=== PATIENT | male | born 1955 | race Caucasian/White ===

== ENCOUNTER → 2020-05-22 | Day surgery (SDC) | payer OTHER ==
[~2020-05-22] MED LIST: ASPIRIN81 MG; ATORVASTATIN CA20 MG PO; ELIQUIS5 M1; FENTANYL CITRATE/PF 100MCG/2 ML INJ ONE; LIDOCAINE HCL 2% LOCAL INJ 5 ML SDV VIAL INJ ONE; METFORMIN HCL500 MG PO; METOPROLOL SUCC50 MG PO; MIDAZOLAM HCL 2 MG/2 ML VIAL ONE; MULTI-VITAMIN1 EACH; PRILOSEC OTC20 MG; PROPOFOL IV EMULSION 10 MG/ML 20 ML VIAL ONE; RYBELSUS3 MG
[2020-05-22 12:15] VITALS: BP 110/79
--- NOTE | 2020-05-22 12:39 | Operative Report ---
DATE OF PROCEDURE: 05/22/2020 SURGEON: Alec Herman MD PROCEDURE PERFORMED: Colonoscopy. PREOPERATIVE DIAGNOSIS: History of colon polyps. POSTOPERATIVE DIAGNOSIS: 1. History of colon polyps, none found, although prep was not that great. 2. Diverticulosis. PREOPERATIVE MEDICATIONS: Consisted of general anesthesia. DESCRIPTION OF PROCEDURE: Using an [employer] video colonoscope, it was inserted in the patient's rectum and advanced without difficulty to the level of the cecum. The colon was studied from that level back down to the rectum. No new colon polyps were found. There was a lot of excess amount of stool, which was suctioned out throughout the exam, but small polyps could have been missed. Diverticula were seen in the sigmoid colon. As we withdrew the colonoscope from the patient's rectum, the procedure was then ended. In conclusion, we have findings of poor prep, but no new colon polyps found. Scattered diverticula seen. Alec Herman MD SAF/MODL /[id number]
== END | disposition home or self-care (01) ==
LOC: OR 07:40
PROVIDERS: ATTEND Internal Medicine Gastroenterology
DX: R19.7 Diarrhea, unspecified (principal); Z86.010 Personal history of colon polyps; K57.30 Diverticulosis of large intestine without perforation or abscess without bleeding; K59.00 Constipation, unspecified; K21.9 Gastro-esophageal reflux disease without esophagitis; G47.33 Obstructive sleep apnea (adult) (pediatric); I10 Essential (primary) hypertension; I25.810 Atherosclerosis of coronary artery bypass graft(s) without angina pectoris; I25.2 Old myocardial infarction; E11.9 Type 2 diabetes mellitus without complications; Z91.041 Radiographic dye allergy status; Z01.810 Encounter for preprocedural cardiovascular examination; Z01.812 Encounter for preprocedural laboratory examination; Z11.59 Encounter for screening for other viral diseases; Z79.02 Long term (current) use of antithrombotics/antiplatelets; Z79.82 Long term (current) use of aspirin; Z79.84 Long term (current) use of oral hypoglycemic drugs; Z68.38 Body mass index [BMI] 38.0-38.9, adult; Z95.1 Presence of aortocoronary bypass graft; Z86.718 Personal history of other venous thrombosis and embolism
CPT/HCPCS: 36415; 45378; 82948; 93005; J2001; J2250; J3010; U0002